=== PATIENT | female | born 1950 | race Caucasian/White ===

== ENCOUNTER → 2016-08-22 | Outpatient (CLI) | payer MEDICARE ==
--- NOTE | 2016-08-22 14:06 | US ---
EXAM DESCRIPTION: Left upper extremity venous ultrasound exam with Doppler. CLINICAL HISTORY: Left upper extremity pain and swelling. COMPARISON: None. TECHNIQUE: The deep and superficial veins of left upper extremity were evaluated with allen scale, color Doppler, and spectral Doppler sonography. IMPRESSION: No evidence of DVT within the left internal jugular vein or venous structures within the left upper extremity. Electronically signed by: Prasanna Conn MD 08/22/2016 14:04
== END ==
LOC: US 10:32
PROVIDERS: ATTEND Nurse Practitioner Family
DX: C50.919 Malignant neoplasm of unspecified site of unspecified female breast (principal); R22.32 Localized swelling, mass and lump, left upper limb; Z92.21 Personal history of antineoplastic chemotherapy

== ENCOUNTER 2017-10-28 19:37 | Emergency (ER) | payer MEDICARE ==
--- NOTE | 2017-10-28 19:46 | ED.PDOC ---
History of Present Illness - General Chief Complaint: Respiratory Problem Stated Complaint: wheezing Time Seen by Provider: 10/28/17 19:45 Source: patient Exam Limitations: no limitations - History of Present Illness Comments: Gabby Najera 66 y/o female stated that she had been having asthmatic attacks wheezing and sob on and off for the last one month and using inhalers several times.Had started having asthma symptoms since she was 32 years old.Had also been on chemo and radiation treatment for her breast cancer.No fever or chills.Has b agonist mdi and LABA for her asthma symptoms.Had used 2 canister of her MDI this month. Timing/Duration: other - 30 days Cough Quality/Degree: dry cough Possible Cause: occasional episodes Improving Factors: nothing Worsening Factors: other - weather Associated Symptoms: shortness of breath Respiratory Risk Factors: exposure to allergen Allergies/Adverse Reactions: Allergies Aspirin Allergy (Verified 10/28/17 20:04) Ibuprofen Allergy (Verified 10/28/17 20:04) NSAIDs Allergy (Verified 10/28/17 20:04) Paroxetine [From Paxil] Allergy (Verified 10/28/17 20:04) Home Medications: Ambulatory Orders Ipratropium/Albuterol (ER Disp [Duoneb ER DISPENSE] 3 ml NEB Q4H PRN #4 vial 10/28/17 Ipratropium/Albuterol [Duoneb] 3 ml NEB Q4HR PRN #30 vial 10/28/17 Montelukast [Singulair] 10 mg PO BEDTIME #30 tab 10/28/17 predniSONE 10 mg PO BID 7 Days #14 tab 10/28/17 Review of Systems - Review of Systems Constitutional: States: no symptoms reported EENTM: States: no symptoms reported Respiratory: States: see HPI Cardiology: States: no symptoms reported Gastrointestinal/Abdominal: States: no symptoms reported Genitourinary: States: no symptoms reported Skin: States: no symptoms reported Past Medical History (General) - Patient Medical History Hx Asthma: Yes Hx Cancer: Yes - right breast with contralateral LN metastasis Surgical History: other - right lumpectomy,right nephrectomy,TAHBSO - Social History Hx Tobacco Use: No Hx Alcohol Use: No Hx Substance Use: No Hx Physical Abuse: No Hx Emotional Abuse: No - Activities of Daily Living Patient Lives Alone: No Grooming Ability: Independent Eating (Feeding) Ability: Independent Toileting Ability: Independent Family Medical History - Family History Mother Hx Family Asthma: Yes Hx Family Diabetes: Yes Hx Family Cancer: Yes - breast-mom;lung-brother;dad Father Hx Family Congestive Heart Failure: Yes Hx Cardiac Disease: Yes Physical Exam - Physical Exam General Appearance: Alert, Comfortable, No apparent distress, Other - speech fluent Eye Exam: bilateral normal ENT Exam: normal ENT inspection, hearing grossly normal, pharynx normal Neck: non-tender, supple, trachea midline Respiratory: chest non-tender, no respiratory distress, wheezing - bilaterally Cardiovascular/Chest: normal peripheral pulses, regular rate, rhythm, no murmur Gastrointestinal/Abdominal: normal bowel sounds, non tender, soft Extremity: non-tender, no pedal edema, no calf tenderness Neurologic: alert, oriented x 3 Skin Exam: normal color, warm/dry Progress - Progress Progress: 10/28/17 21:25 Vital Signs - 8 hr 10/28/17 10/28/17 19:52 20:10 Temperature 99.8 F H Pulse Rate 70 Pulse Rate [ 69 left] Respiratory 22 18 Rate Blood Pressure 163/79 [left] O2 Sat by Pulse 94 L 98 Oximetry - Results/Orders Results/Orders: 10/28/17 19:46 IV Care:Saline Lock per Protoc QSHIFT SVN/Updraft Therapy .PRN 10/28/17 19:47 SVN/Updraft Therapy .ONCE 10/28/17 20:52 SVN/Updraft Therapy .ONCE SVN/Updraft Therapy .PRN 10/29/17 09:00 [facility] Laboratory Results - last 24 hr 10/28/17 10/28/17 20:18 20:24 WBC 8.1 RBC 3.58 L Hgb 10.2 L Hct 31.1 L MCV 86.9 MCH 28.4 MCHC 32.8 L RDW 16.6 H Plt Count 267 MPV 8.9 Absolute Neuts (auto) 4.80 Absolute Lymphs (auto) 2.30 Absolute Monos (auto) 0.60 Absolute Eos (auto) 0.30 Absolute Basos (auto) 0.10 Neutrophils % 59.4 Lymphocytes % 28.0 Monocytes % 7.8 Eosinophils % 3.9 Basophils % 0.9 PT 10.2 INR 0.880 PTT (SP) 20.1 L Sodium 136 Potassium 4.6 Chloride 102 Carbon Dioxide 26 Anion Gap 12.6 BUN 27 H Creatinine 1.06 BUN/Creatinine Ratio 25.5 H Random Glucose 135 H Serum Osmolality 279.1 Calcium 9.2 Magnesium 2.1 Total Bilirubin 0.4 Direct Bilirubin < 0.1 Indirect Bilirubin 0.3 AST 19 ALT 12 Alkaline Phosphatase 67 Creatine Kinase 336 H* CK-MB (CK-2) 3.1 CK-MB (CK-2) % Not Reportable Troponin I < 0.02 B-Natriuretic Peptide 115.0 H Serum Total Protein 6.6 Albumin 3.5 Urine Color Yellow Urine Appearance Clear Urine pH 6.0 Ur Specific [place] 1.015 Urine Protein Negative Urine Glucose (UA) Negative Urine Ketones Negative Urine Blood Negative Urine Nitrite Negative Urine Bilirubin Negative Urine Urobilinogen 0.2 Ur Leukocyte Esterase Negative Urine RBC 0 Urine WBC 0 Ur Epithelial Cells 0-1 Urine Bacteria Rare - EKG/XRAY/CT XRAY: chest - no acute abnormalities Departure - Departure Clinical Impression: Bronchial asthma Qualifiers: Asthma severity: mild persistent Asthma complication type: with acute exacerbation Qualified Code(s): J45.31 - Mild persistent asthma with (acute) exacerbation Time of Disposition: 21:27 Disposition: Discharge to Home or Self Care Condition: Fair Departure Forms: ED Discharge - Pt. Copy, Patient Portal Self Enrollment Instructions: DI for Asthma -- Adult Referrals: ZACK HADDAD [Primary Care Provider] - 1-2 Weeks Prescriptions: Ipratropium/Albuterol [Duoneb] 3 ml NEB Q4HR PRN #30 vial PRN Reason: Wheezing Ipratropium/Albuterol (ER Disp [Duoneb ER DISPENSE] 3 ml NEB Q4H PRN #4 vial PRN Reason: Wheezing Montelukast [Singulair] 10 mg PO BEDTIME #30 tab predniSONE 10 mg PO BID 7 Days #14 tab Home Medications: Ambulatory Orders Ipratropium/Albuterol (ER Disp [Duoneb ER DISPENSE] 3 ml NEB Q4H PRN #4 vial 10/28/17 Ipratropium/Albuterol [Duoneb] 3 ml NEB Q4HR PRN #30 vial 10/28/17 Montelukast [Singulair] 10 mg PO BEDTIME #30 tab 10/28/17 predniSONE 10 mg PO BID 7 Days #14 tab 10/28/17 Additional Instructions: Return to ER as needed;Follow up with primary Md 30 October 2017 as needed
[2017-10-28] MEDS ORDERED: IPRATROPIUM/ALBUTEROL 3 ML VIAL NEB ONE ×3 (19:48→21:52)
[2017-10-28] MEDS ORDERED: methylPREDNISolone SODIUM SUC 125 MG/2 ML VIAL IV ONE (20:14)
--- NOTE | 2017-10-28 20:34 | RAD ---
EXAM DESCRIPTION: Chest,1 View CLINICAL HISTORY:66 years Female, wheezing Compared to May 27, 2009 FINDINGS: Left-sided port is noted with tip in the distal SVC. Lungs: Lungs are clear. No pleural effusion. No pneumothorax. Cardiac silhouette is within normal limits No acute osseous abnormality. Soft tissues are unremarkable. Mild osseous degenerative changes. IMPRESSION: No acute findings. No focal lung consolidation. Electronically signed by: Deangelo Brizuela MD 10/28/2017 8:33 PM CDT
[2017-10-28 22:04] VITALS: TEMP 99.1
[2017-10-28 22:09] VITALS: BP 146/55; O2SAT 93
== END 2017-10-28 22:09 | disposition home or self-care (01) ==
LOC: ER 19:37
DX: J45.31 Mild persistent asthma with (acute) exacerbation (principal); C50.911 Malignant neoplasm of unspecified site of right female breast; C77.9 Secondary and unspecified malignant neoplasm of lymph node, unspecified; Z79.899 Other long term (current) drug therapy
CPT/HCPCS: 71045; 80048; 80076; 81001; 82550; 82553; 83880; 84484; 85025; 85610; 85730; 94640; J2930; J7620